=== PATIENT | female | born 1995 | race Caucasian/White ===

== ENCOUNTER 2022-03-31 09:25 | Outpatient (CLI) | payer OTHER, SELFPAY ==
--- NOTE | 2022-03-31 09:30 | CRLHL7_ITS ---
For Patients: As a result of the Cures Act, medical imaging exams and procedure reports are released immediately into your electronic medical record. You may view this report before your referring provider. If you have questions, please contact your health care provider. INDICATION: R/O TUBERCULOSIS AND IGRA COMPARISON: none TECHNIQUE: Two views of the chest were obtained. FINDINGS: The lungs are clear. There is no evidence of a suspicious infiltrate, cavitary lesion or focal pleural abnormality. Pulmonary christen are of normal size and density. Heart and blood vessels appear normal and there is no evidence of pleural fluid. IMPRESSION: No active pulmonary process identified. Dictated by Dylan Luque MD @ 03/31/2022 10:32:39 AM (Electronically Signed)
== END 2022-03-31 09:26 | disposition home or self-care (01) ==
PROVIDERS: Visit Provider Nurse Practitioner Women's Health
DX: R76.12 Nonspecific reaction to cell mediated immunity measurement of gamma interferon antigen response without active tuberculosis (principal)
CPT/HCPCS: 71045